=== PATIENT | female | born 1975 | race Caucasian/White ===

== ENCOUNTER 2020-08-15 09:38 | Emergency (ER) | payer MEDICAID, OTHER ==
[~2020-08-15] VITALS: Ht 162.6 cm; Wt 91.0 kg
[2020-08-15 09:40] VITALS: BP 200/112
[2020-08-15] MEDS ORDERED: ALBUTEROL 6.7GM HFA INHALER ORI ONE (11:00)
[2020-08-15 11:53] LABS: BASOPHILS % 0.8 % (0.0-2.0); EOSINOPHILS % 0.2 % (0.0-5.0); HEMATOCRIT. 34.8 % (36.0-48.0); HEMOGLOBIN. 11.5 g/dL (12.0-16.0); LYMPHOCYTES % 10.7 % (20.0-50.0); MEAN CORPUSCULAR HEMOGLOBIN 25.9 pg (28.0-32.0); MEAN CORPUSCULAR VOLUME 78.6 fL (81.0-99.0); MEAN PLATELET VOLUME 8.7 fl (7.4-10.4); MONOCYTES % 3.7 % (2.0-8.0); NEUTROPHILS % 84.6 % (40.0-76.0); PLATELET 339 x1000/uL (130-400); RED BLOOD CELL COUNT 4.43 mill/uL (4.2-5.4)
[2020-08-15 11:59] LABS: INR 1.1; PROTHROMBIN TIME 11.9 sec (9.6-11.0)
[2020-08-15 12:00] LABS: CHLORIDE 105 mEq/L (98-107)
[2020-08-15] MEDS ORDERED: ASPIRIN 81MG TABLET PO ONE (12:15)
== END 2020-08-15 18:43 | disposition left against medical advice (07) ==
LOC: ER 09:47 → CANBEDREQ 08-16 16:50
DX: I21.3 ST elevation (STEMI) myocardial infarction of unspecified site (principal); I10 Essential (primary) hypertension; Z90.49 Acquired absence of other specified parts of digestive tract; Z20.828 Contact with and (suspected) exposure to other viral communicable diseases
CPT/HCPCS: 36415; 71045; 80053; 83880; 84484; 85025; 85610; 87635; 93005; 94640; 99285; C9803; Z7610

== ENCOUNTER 2023-09-12 16:56 | Emergency (ER) | payer MEDICAID ==
[~2023-09-12] VITALS: Ht 167.6 cm; Wt 109.0 kg
[2023-09-12 16:59] VITALS: PULSE 111
[2023-09-12 17:00] VITALS: BP 168/116; RESP 18; TEMP 98.5; O2SAT 96
[2023-09-12 17:35] LABS: BASOPHILS % 0.5 % (0.0-2.0); EOSINOPHILS % 0.5 % (0.0-5.0); HEMATOCRIT. 43.5 % (36.0-48.0); HEMOGLOBIN. 14.2 g/dL (12.0-16.0); LYMPHOCYTES % 13.7 % (20.0-50.0); MEAN CORPUSCULAR HEMOGLOBIN 26.7 pg (28.0-32.0); MEAN CORPUSCULAR HGB CONC 32.6 g/dL (31.0-37.0); MEAN CORPUSCULAR VOLUME 81.7 fL (81.0-99.0); MEAN PLATELET VOLUME 9.5 fl (7.4-10.4); MONOCYTES % 4.5 % (2.0-8.0); NEUTROPHILS % 80.8 % (40.0-76.0); PLATELET 266 x1000/uL (130-400); RED BLOOD CELL COUNT 5.32 mill/uL (4.2-5.4); RED CELL DISTRIBUTION WIDTH 16.1 % (11.6-14.6); WHITE BLOOD COUNT 10.2 x1000/uL (4.5-11.0)
[2023-09-12 17:43] LABS: INR 1.1; PROTHROMBIN TIME 11.9 sec (9.6-11.0)
[2023-09-12 17:55] LABS: ALANINE AMINOTRANSFERASE 20 IU/L (10-49); ALBUMIN 3.5 g/dL (3.2-4.8); ASPARTATE AMINOTRANSFERASE 13 IU/L (<34); BILIRUBIN TOTAL 1.1 mg/dL (0.1-1.0); CALCIUM 8.4 mg/dL (8.7-10.4); CARBON DIOXIDE 26 mEq/L (21-32); CHLORIDE 102 mEq/L (98-107); CREATININE 0.7 mg/dL (0.6-1.0); GLUCOSE 383 mg/dL (70-105); SODIUM 134 mEq/L (136-145); TROPONIN I HIGH SENSITIVITY 26 ng/L (3.0-34); UREA NITROGEN BLOOD 11 mg/dL (9-23)
== END 2023-09-12 20:53 | disposition left against medical advice (07) ==
LOC: ER 17:07
DX: R06.02 Shortness of breath (principal); Z53.21 Procedure and treatment not carried out due to patient leaving prior to being seen by health care provider
CPT/HCPCS: 36415; 71045; 80053; 83880; 84484; 85025; 93005; 99281; 99285

== ENCOUNTER 2024-01-28 07:34 | Emergency (ER) | payer MEDICAID ==
[~2024-01-28] VITALS: Ht 170.2 cm; Wt 128.0 kg
[2024-01-28 07:36] VITALS: O2SAT 98
[2024-01-28] MEDS: ACETAMINOPHEN 325MG TABLET PO ONE (08:20)
[2024-01-28] MEDS ORDERED: TOPUD PO (08:51)
[2024-01-28] MEDS ORDERED: GUAI-453 PO (08:52)
[2024-01-28] MEDS: GUAIFENESIN 600MG ER TABLET PO STA (08:57)
[2024-01-28 09:23] VITALS: BP 163/103; PULSE 89; RESP 18; TEMP 98.2
== END 2024-01-28 09:30 | disposition home or self-care (01) ==
LOC: ER 07:34
DX: B34.9 Viral infection, unspecified (principal); I10 Essential (primary) hypertension; E11.9 Type 2 diabetes mellitus without complications; Z90.49 Acquired absence of other specified parts of digestive tract; Z20.822 Contact with and (suspected) exposure to COVID-19
CPT/HCPCS: 71045; 81025; 87426; 87804; 99284

== ENCOUNTER 2025-01-01 03:22 | Inpatient (IN) | payer MEDICAID ==
[~2025-01-01] VITALS: Ht 165.1 cm; Wt 105.7 kg
[~2025-01-01 03:22] MED LIST: GUAI-453 PO; TOPUD PO
[2025-01-01 03:26] VITALS: O2SAT 96
[2025-01-01 04:43] LABS: CHLORIDE 99 mEq/L (98-107); POTASSIUM 4.2 mEq/L (3.5-5.1); SODIUM 132 mEq/L (136-145)
[2025-01-01 04:44] LABS: CALCIUM 9.1 mg/dL (8.7-10.4); CARBON DIOXIDE 25 mEq/L (21-32)
[2025-01-01 04:49] LABS: CREATININE 0.8 mg/dL (0.6-1.0); GLUCOSE 371 mg/dL (70-105); UREA NITROGEN BLOOD 11 mg/dL (9-23)
[2025-01-01 05:48] LABS: TROPONIN I HIGH SENSITIVITY 40 ng/L (3.0-34)
[2025-01-01 06:49] LABS: TROPONIN I HIGH SENSITIVITY 34 ng/L (3.0-34)
[2025-01-01 08:15] VITALS: BP 140/98; PULSE 58; RESP 18; TEMP 36.4; O2SAT 97
[2025-01-01 09:33] VITALS: BP 140/98; PULSE 58; RESP 18; TEMP 36.4
[2025-01-01 09:56] LABS: HEMATOCRIT. 43.6 % (36.0-48.0); HEMOGLOBIN. 14.3 g/dL (12.0-16.0); MEAN CORPUSCULAR HEMOGLOBIN 27.8 pg (28.0-32.0); MEAN CORPUSCULAR HGB CONC 32.9 g/dL (31.0-37.0); MEAN CORPUSCULAR VOLUME 84.6 fL (81.0-99.0); MEAN PLATELET VOLUME 9.7 fl (7.4-10.4); PLATELET 280 x1000/uL (130-400); RED BLOOD CELL COUNT 5.16 mill/uL (4.2-5.4); RED CELL DISTRIBUTION WIDTH 15.6 % (11.6-14.6); WHITE BLOOD COUNT 12.5 x1000/uL (4.5-11.0)
[2025-01-01 09:57] LABS: DIFFERENTIAL COMMENT 1
[2025-01-01] MEDS ORDERED: SITA25TA3 MT (10:10)
[2025-01-01] MEDS ORDERED: FURO-151 MT (10:10)
[2025-01-01] MEDS ORDERED: ISOS30TA12 MT (10:10)
[2025-01-01] MEDS ORDERED: SPIR25TA6 MT (10:10)
[2025-01-01] MEDS ORDERED: LORA10TA7 MT (10:10)
[2025-01-01] MEDS ORDERED: ALBU18HF2 IH (10:10)
[2025-01-01] MEDS ORDERED: METF-416 PO (10:10)
[2025-01-01] MEDS ORDERED: HYDROCODONE/ACETAMINOPHEN 5/325MG TABLET PO PRN (10:15)
[2025-01-01] MEDS ORDERED: ACETAMINOPHEN 325MG TABLET PO PRN (10:15)
[2025-01-01] MEDS ORDERED: IPRATROPIUM/ALBUTEROL 0.5-3(2.5)MG/3ML NEB NEB PRN (10:15)
[2025-01-01] MEDS ORDERED: DEXTROSE 50% WATER 50ML SYRINGE IV PRN (10:15)
[2025-01-01] MEDS ORDERED: CLONIDINE 0.1MG TABLET PO PRN (10:15)
[2025-01-01] MEDS ORDERED: NALOXONE HCL 0.4MG/ML VIAL IV PRN (10:30)
[2025-01-01] MEDS: ENOXAPARIN 40MG/0.4ML SYR SUBCUT SCH (11:17)
[2025-01-01 11:39] LABS: PLATELET ESTIMATE NORMAL
[2025-01-01 12:00] VITALS: BP 141/91; PULSE 107; RESP 19; TEMP 36.6; O2SAT 98
[2025-01-01] MEDS: BLOOD SUGAR DIAGNOSTIC STRIP TEST SCH (12:14)
[2025-01-01] MEDS: INSULIN LISPRO 100 UNITS/ML SUBCUT SCH (13:17)
[2025-01-01 13:46] LABS: *AMPHETAMINES SCREEN URINE NEGATIVE (NEGATIVE); *BARBITURATES SCREEN URINE NEGATIVE (NEGATIVE); *BENZODIAZEPINES SCREEN URINE NEGATIVE (NEGATIVE); *COCAINE SCREEN URINE NEGATIVE (NEGATIVE); CANNABINOID URINE SCREEN PRESUMPTIVE POSITIVE (NEGATIVE); ECSTASY MDMA SCREEN URINE NEGATIVE (NEGATIVE); METHADONE URINE SCREEN NEGATIVE (NEGATIVE); OPIATES URINE SCREEN NEGATIVE (NEGATIVE); PHENCYCLIDINE URINE SCREEN NEGATIVE (NEGATIVE)
[2025-01-01] MEDS: EMPAGLIFLOZIN 10MG TABLET PO SCH (14:04)
[2025-01-01] MEDS: ASPIRIN 81MG TABLET PO SCH (14:04)
[2025-01-01 16:00] VITALS: BP 140/89; PULSE 84; RESP 18; TEMP 36.6; O2SAT 98
[2025-01-01 17:34] LABS: CREATINE KINASE MB FRACTION 1.6 ng/mL (0.5-3.6)
[2025-01-01 17:55] LABS: HEPATITIS B SURFACE ANTIGEN NEGATIVE (Negative)
[2025-01-01 18:16] LABS: HEPATITIS C AB NON REACTIVE (Neg) (Negative)
[2025-01-01 18:19] LABS: CLARITY URINE CLEAR (CLEAR); COLOR URINE DARK YELLOW (YELLOW); GLUCOSE URINE 3+ (NEGATIVE); KETONES URINE TRACE (NEGATIVE); LEUKOCYTE ESTERASE URINE NEGATIVE (NEGATIVE); NITRITE URINE NEGATIVE (NEGATIVE); OCCULT BLOOD URINE NEGATIVE (NEGATIVE); PH URINE 5.5 (4.5-8.0); PROTEIN URINE 4+ (NEGATIVE); SPECIFIC GRAVITY URINE 1.037 (1.005-1.030)
[2025-01-01 18:44] LABS: RBC URINE 0-2 /hpf (0-2); SQUAMOUS EPITHELIAL CELL URINE FEW /lpf (RARE/1+)
[2025-01-01 18:45] LABS: BACTERIA URINE NONE SEEN
[2025-01-01 20:00] VITALS: BP 117/73; PULSE 89; RESP 18; TEMP 35.7; O2SAT 100
[2025-01-01] MEDS: ATORVASTATIN CALCIUM 40MG TABLET PO SCH (21:29)
[2025-01-02] VITALS: BP 117/73; PULSE 89; RESP 18; TEMP 35.7; O2SAT 100
[2025-01-02 00:36] LABS: CREATINE KINASE MB FRACTION 1.6 ng/mL (0.5-3.6)
[2025-01-02] MEDS: ZOLPIDEM TARTRATE 5MG TABLET PO PRN (02:00)
[2025-01-02 04:00] VITALS: BP 122/79; PULSE 99; RESP 16; TEMP 36.3; O2SAT 93
[2025-01-02 07:58] LABS: BASOPHILS % 0.5 % (0.0-2.0); EOSINOPHILS % 0.5 % (0.0-5.0); HEMATOCRIT. 39.2 % (36.0-48.0); HEMOGLOBIN. 12.5 g/dL (12.0-16.0); MEAN CORPUSCULAR HEMOGLOBIN 27.2 pg (28.0-32.0); MEAN CORPUSCULAR HGB CONC 31.9 g/dL (31.0-37.0); MEAN CORPUSCULAR VOLUME 85.4 fL (81.0-99.0); MEAN PLATELET VOLUME 9.5 fl (7.4-10.4); MONOCYTES % 5.1 % (2.0-8.0); NEUTROPHILS % 75.9 % (40.0-76.0); PLATELET 226 x1000/uL (130-400); RED CELL DISTRIBUTION WIDTH 16.1 % (11.6-14.6); WHITE BLOOD COUNT 11.2 x1000/uL (4.5-11.0)
[2025-01-02 08:00] VITALS: BP 135/83; PULSE 83; RESP 17; TEMP 36.2; O2SAT 97
[2025-01-02 08:06] LABS: CHLORIDE 102 mEq/L (98-107); POTASSIUM 4.3 mEq/L (3.5-5.1); SODIUM 135 mEq/L (136-145)
[2025-01-02 08:07] LABS: CALCIUM 8.1 mg/dL (8.7-10.4); CARBON DIOXIDE 26 mEq/L (21-32)
[2025-01-02 08:12] LABS: CREATININE 0.7 mg/dL (0.6-1.0); GLUCOSE 172 mg/dL (70-105); UREA NITROGEN BLOOD 18 mg/dL (9-23)
[2025-01-02] MEDS: PANTOPRAZOLE SODIUM 40 MG/VIAL IV SCH (08:53)
[2025-01-02] MEDS: FUROSEMIDE 40MG/4ML VIAL IVP SCH (08:53)
[2025-01-02 12:00] VITALS: BP 123/79; PULSE 84; RESP 18; TEMP 36.4; O2SAT 94
[2025-01-02 16:00] VITALS: BP 110/66; PULSE 93; RESP 18; TEMP 36.5; O2SAT 97
[2025-01-02 20:00] VITALS: BP 111/76; PULSE 90; RESP 18; TEMP 36.6; O2SAT 99
[2025-01-02] MEDS: ONDANSETRON HCL 4MG/2ML INJ IV PRN (20:00)
[2025-01-02] MEDS: ENOXAPARIN 30MG/0.3ML SYR SUBCUT SCH (21:00)
[2025-01-03] VITALS: BP 112/69; PULSE 87; RESP 18; TEMP 36.7; O2SAT 99
[2025-01-03 03:39] VITALS: BP 111/66; PULSE 90; RESP 18; TEMP 36.7; O2SAT 99
[2025-01-03 08:00] VITALS: BP 159/76; PULSE 79; RESP 17; TEMP 36.6; O2SAT 99
[2025-01-03 10:17] LABS: BASOPHILS % 0.5 % (0.0-2.0); EOSINOPHILS % 0.6 % (0.0-5.0); HEMOGLOBIN. 13.2 g/dL (12.0-16.0); LYMPHOCYTES % 10.2 % (20.0-50.0); MEAN CORPUSCULAR HEMOGLOBIN 27.8 pg (28.0-32.0); MEAN CORPUSCULAR HGB CONC 32.9 g/dL (31.0-37.0); MEAN CORPUSCULAR VOLUME 84.4 fL (81.0-99.0); MEAN PLATELET VOLUME 9.3 fl (7.4-10.4); MONOCYTES % 5.3 % (2.0-8.0); NEUTROPHILS % 83.4 % (40.0-76.0); PLATELET 244 x1000/uL (130-400); RED BLOOD CELL COUNT 4.74 mill/uL (4.2-5.4); WHITE BLOOD COUNT 10.6 x1000/uL (4.5-11.0)
[2025-01-03 10:25] LABS: CALCIUM 8.7 mg/dL (8.7-10.4); CHLORIDE 100 mEq/L (98-107); POTASSIUM 3.8 mEq/L (3.5-5.1); SODIUM 136 mEq/L (136-145)
[2025-01-03 10:26] LABS: CARBON DIOXIDE 28 mEq/L (21-32)
[2025-01-03 10:31] LABS: CREATININE 0.8 mg/dL (0.6-1.0); GLUCOSE 154 mg/dL (70-105); UREA NITROGEN BLOOD 14 mg/dL (9-23)
[2025-01-03 12:00] VITALS: BP 137/68; PULSE 76; RESP 17; TEMP 36.4; O2SAT 98
[2025-01-03 16:00] VITALS: PULSE 86; RESP 17; TEMP 36.3; O2SAT 98
[2025-01-03 20:00] VITALS: BP 134/90; PULSE 91; RESP 18; TEMP 37.1; O2SAT 96
[2025-01-04] VITALS: BP 129/90; PULSE 93; RESP 18; TEMP 36.7; O2SAT 97
[2025-01-04 04:00] VITALS: BP 128/87; PULSE 90; RESP 18; TEMP 36.3; O2SAT 98
[2025-01-04 06:55] LABS: BASOPHILS % 0.4 % (0.0-2.0); CARBON DIOXIDE 30 mEq/L (21-32); CHLORIDE 98 mEq/L (98-107); EOSINOPHILS % 0.7 % (0.0-5.0); HEMATOCRIT. 37.2 % (36.0-48.0); HEMOGLOBIN. 12.2 g/dL (12.0-16.0); LYMPHOCYTES % 14.4 % (20.0-50.0); MEAN CORPUSCULAR HEMOGLOBIN 27.6 pg (28.0-32.0); MEAN CORPUSCULAR HGB CONC 32.9 g/dL (31.0-37.0); MEAN PLATELET VOLUME 9.7 fl (7.4-10.4); MONOCYTES % 6.7 % (2.0-8.0); NEUTROPHILS % 77.8 % (40.0-76.0); PLATELET 237 x1000/uL (130-400); POTASSIUM 3.7 mEq/L (3.5-5.1); RED BLOOD CELL COUNT 4.43 mill/uL (4.2-5.4); RED CELL DISTRIBUTION WIDTH 16.1 % (11.6-14.6); SODIUM 135 mEq/L (136-145); WHITE BLOOD COUNT 10.1 x1000/uL (4.5-11.0)
[2025-01-04 06:56] LABS: CALCIUM 8.4 mg/dL (8.7-10.4)
[2025-01-04 07:00] LABS: CREATININE 0.8 mg/dL (0.6-1.0)
[2025-01-04 07:01] LABS: GLUCOSE 187 mg/dL (70-105); UREA NITROGEN BLOOD 13 mg/dL (9-23)
[2025-01-04 07:38] LABS: HCG SCREEN NEGATIVE
[2025-01-04 08:00] VITALS: BP 138/93; PULSE 82; RESP 18; TEMP 36.2; O2SAT 95
[2025-01-04] MEDS ORDERED: DIPHENHYDRAMINE 50MG/ML VIAL ONE (08:41)
[2025-01-04] MEDS ORDERED: HEPARIN 1000 UNITS/ML 10ML ONE (08:41)
[2025-01-04] MEDS ORDERED: VERAPAMIL HCL 2.5 MG/1 ML 2ML VIAL IV ONE (08:41)
[2025-01-04] MEDS ORDERED: LIDOCAINE HCL 1% 20ML VIAL ONE (08:42)
[2025-01-04] MEDS ORDERED: IODIXANOL 320MG/ML 100 ML BOTTLE IV ONE (08:42)
[2025-01-04] MEDS ORDERED: MIDAZOLAM HCL 2 MG/2 ML VIAL ONE (09:28)
[2025-01-04] MEDS ORDERED: FENTANYL CITRATE/PF 50MCG/ML 2ML VIAL ONE (09:28)
[2025-01-04] MEDS ORDERED: ACETAMINOPHEN 325MG TABLET PO PRN (10:45)
[2025-01-04] MEDS ORDERED: ATROPINE SULFATE 1MG/10ML SYR IV PRN (10:45)
[2025-01-04 16:00] VITALS: BP 138/89; PULSE 83; RESP 18; TEMP 35.8; O2SAT 98
[2025-01-04 16:44] LABS: INR 1.1; PROTHROMBIN TIME 11.6 sec (9.6-11.0)
[2025-01-04 20:00] VITALS: BP 120/78; PULSE 90; RESP 18; TEMP 37.3; O2SAT 95
[2025-01-05] VITALS: BP 142/92; PULSE 88; RESP 19; TEMP 37.1; O2SAT 96
[2025-01-05 04:00] VITALS: BP 139/95; PULSE 75; RESP 18; TEMP 36.7; O2SAT 96
[2025-01-05 06:52] LABS: CHLORIDE 98 mEq/L (98-107); POTASSIUM 3.9 mEq/L (3.5-5.1); SODIUM 137 mEq/L (136-145)
[2025-01-05 06:53] LABS: CALCIUM 8.7 mg/dL (8.7-10.4); CARBON DIOXIDE 31 mEq/L (21-32)
[2025-01-05 06:58] LABS: CREATININE 0.8 mg/dL (0.6-1.0); GLUCOSE 153 mg/dL (70-105); UREA NITROGEN BLOOD 13 mg/dL (9-23)
[2025-01-05 06:59] LABS: BASOPHILS % 0.4 % (0.0-2.0); EOSINOPHILS % 1.1 % (0.0-5.0); HEMOGLOBIN. 12.9 g/dL (12.0-16.0); LYMPHOCYTES % 17.5 % (20.0-50.0); MEAN CORPUSCULAR HEMOGLOBIN 27.7 pg (28.0-32.0); MEAN CORPUSCULAR HGB CONC 32.9 g/dL (31.0-37.0); MEAN CORPUSCULAR VOLUME 84.1 fL (81.0-99.0); MEAN PLATELET VOLUME 9.4 fl (7.4-10.4); MONOCYTES % 6.4 % (2.0-8.0); NEUTROPHILS % 74.6 % (40.0-76.0); PLATELET 268 x1000/uL (130-400); RED BLOOD CELL COUNT 4.64 mill/uL (4.2-5.4); RED CELL DISTRIBUTION WIDTH 16.1 % (11.6-14.6); WHITE BLOOD COUNT 8.8 x1000/uL (4.5-11.0)
[2025-01-05 08:00] VITALS: BP 146/85; PULSE 79; RESP 17; TEMP 36.6; O2SAT 97
[2025-01-05 12:00] VITALS: BP 146/85; PULSE 79; RESP 17; TEMP 36; O2SAT 79
[2025-01-05] MEDS: CARVEDILOL 3.125 MG TABLET PO SCH (12:25)
[2025-01-05] MEDS: LOSARTAN 25 MG TABLET PO SCH (12:25)
[2025-01-05] MEDS ORDERED: COR3 PO (12:49)
[2025-01-05] MEDS ORDERED: FURO-151 MT (12:49)
[2025-01-05] MEDS ORDERED: SACU1TAB MT (12:49)
[2025-01-05] MEDS ORDERED: ISOS30TA12 MT (12:49)
[2025-01-05] MEDS ORDERED: ALBU18HF2 IH (12:49)
[2025-01-05] MEDS ORDERED: LIP40 PO (12:49)
[2025-01-05] MEDS ORDERED: LORA10TA7 MT (12:49)
[2025-01-05] MEDS ORDERED: METF-416 PO (12:49)
[2025-01-05] MEDS ORDERED: EMPA10TA PO (12:49)
[2025-01-05 12:55] VITALS: BP 146/85; PULSE 79; TEMP 96.8
== END 2025-01-05 14:30 | disposition home or self-care (01) | DRG 192 ==
LOC: ER 03:22 → 6WST 04:28 → EDBEDREQTM 05:15 → EDBEDREQ 05:15
PROVIDERS: ADMIT Internal Medicine; ATTEND Internal Medicine
PROC: 4A023N7 Measurement of Cardiac Sampling and Pressure, Left Heart, Percutaneous Approach (ICD-10-PCS; principal; 2025-01-04)
PROC: B211YZZ Fluoroscopy of Multiple Coronary Arteries using Other Contrast (ICD-10-PCS; 2025-01-04)
DX: I11.0 Hypertensive heart disease with heart failure (principal); J96.01 Acute respiratory failure with hypoxia; I21.4 Non-ST elevation (NSTEMI) myocardial infarction; I50.23 Acute on chronic systolic (congestive) heart failure; I42.0 Dilated cardiomyopathy; E11.9 Type 2 diabetes mellitus without complications; E78.5 Hyperlipidemia, unspecified; I42.8 Other cardiomyopathies; I25.10 Atherosclerotic heart disease of native coronary artery without angina pectoris; Z82.49 Family history of ischemic heart disease and other diseases of the circulatory system; Z91.119 Patient's noncompliance with dietary regimen due to unspecified reason; Z99.81 Dependence on supplemental oxygen
CPT/HCPCS: 36415; 71045; 80048; 80305; 81003; 82550; 82553; 82962; 83036; 83880; 84484; 84703; 85025; 86705; 87340; 93005; 93306; 93458; 93970; 99285; A4606; C1769; C1887; C1893; J1200; J1644; J1650; J1815; J1940; J2250; J2405; J2470; J3010; J3490; Q9967